=== PATIENT | male | born 1980 | race African-American/Black ===

== ENCOUNTER 2020-09-22 23:42 | Observation (INO) ==
[2020-09-23] MEDS ORDERED: HYDROmorphone 2 MG/1 ML VIAL IV ONE (00:41)
[2020-09-23] MEDS ORDERED: ONDANSETRON 4 MG/2 ML VIAL IV STA (00:41)
[2020-09-23] MEDS ORDERED: SODIUM CHLORIDE 0.9% 500 ML IV STA (00:42)
[2020-09-23] MEDS ORDERED: ceFAZolin 1,000 MG VIAL IV ONE (01:19)
[2020-09-23] MEDS ORDERED: DIPH/TET/ACEL PERT BOOSTER VACCINE 0.5 ML VIAL IM ONE (01:19)
[2020-09-23] MEDS ORDERED: HYDROmorphone 2 MG/1 ML VIAL IV STA (01:45)
[2020-09-23 01:49] LABS: Basophils % 0.3 % (0.0-0.8); Eosinophils # 0.1 10*3/uL (0.0-0.87); Eosinophils % 0.5 % (0.00-10.9); Hematocrit 38.5 VOL% (42.0-52.0); Hemoglobin 13.1 GM/DL (14.0-18.0); Immature Granulocytes % 0.3 %; Immature Granulocytes Absolute 0.04 #; Lymphocytes # 2.5 10*3/uL (1.4-4.0); Lymphocytes % 18.1 % (21.2-54.2); Mean Corpuscular Volume 95.5 FL (87-102); Mean Platelet Volume 9.3 FL (9.6-12.0); Monocytes % 8.7 % (1.7-12.7); Neutrophils % 72.1 % (38.7-73.9); Platelet Count 192 T/CUMM (130-400); Red Blood Count 4.03 MC/CUMM (3.8-5.5); Red Cell Distribution Width 11.4 % (9.3-17.3)
[2020-09-23 01:59] LABS: PT Patient Result 11.1 SECS (9.8-11.9)
[2020-09-23 02:10] LABS: Albumin 3.6 G/DL (3.4-5.0); Bilirubin,Total 0.5 MG/DL (0.2-1.0); Calcium 8.5 MG/DL (8.5-10.1); Total Protein 6.9 G/DL (6.4-8.3)
[2020-09-23] MEDS ORDERED: MAGNESIUM HYDROXIDE SUSP 30 ML UDCUP PO PRN (03:17)
[2020-09-23] MEDS ORDERED: SODIUM CHLORIDE 0.9% 1,000 ML IV SCH (03:17)
[2020-09-23] MEDS ORDERED: ONDANSETRON 4 MG/2 ML VIAL IV PRN (03:17)
[2020-09-23] MEDS ORDERED: HYDROmorphone 2 MG/1 ML VIAL IV PRN (03:17)
[2020-09-23] MEDS ORDERED: ceFAZolin 2,000 MG in PREMIX 1 EACH IV ONE ×3 (03:30→06:30)
[2020-09-23] MEDS ORDERED: INFLUENZA VIRUS VACCINE 0.5 ML SYRINGE IM ONE (04:40)
[2020-09-23 05:36] LABS: Albumin 3.6 G/DL (3.4-5.0); Bilirubin,Total 0.4 MG/DL (0.2-1.0); Calcium 8.5 MG/DL (8.5-10.1); Osmolality,Calculated 273.8 MOS/KG (273-304); Total Protein 6.9 G/DL (6.4-8.3)
[2020-09-23] MEDS ORDERED: ACETAMINOPHEN 500 MG TABLET PO ONE (07:54)
[2020-09-23] MEDS ORDERED: FAMOTIDINE 20 MG TABLET PO ONE (07:54)
[2020-09-23] MEDS ORDERED: GABAPENTIN 400 MG CAPSULE PO ONE (07:54)
[2020-09-23] MEDS ORDERED: DIAZEPAM 5 MG TABLET PO ONE (07:54)
[2020-09-23] MEDS ORDERED: ROPIVACAINE 0.5% 30 ML VIAL ONE (09:02)
[2020-09-23] MEDS ORDERED: LIDOCAINE 2% 5 ML VIAL ONE ×2 (09:02→11:07)
[2020-09-23] MEDS ORDERED: DEXAMETHASONE 4 MG/1 ML VIAL ONE (09:02)
[2020-09-23] MEDS ORDERED: BACITRACIN OINT 0.9 GM PACK TOP ONE (09:19)
[2020-09-23] MEDS ORDERED: fentaNYL 100 MCG/2 ML VIAL ONE (11:07)
[2020-09-23] MEDS ORDERED: SEVOFLURANE 1 UNIT/15 MINUTE INH ONE (11:07)
[2020-09-23] MEDS ORDERED: propofoL 200 MG/20 ML VIAL IV ONE (11:07)
[2020-09-23] MEDS ORDERED: MIDAZOLAM 2 MG/2 ML VIAL ONE (11:07)
[2020-09-23] MEDS ORDERED: ONDANSETRON 4 MG/2 ML VIAL ONE (11:08)
[2020-09-23] MEDS ORDERED: ROCURONIUM 100 MG/10 ML VIAL IV ONE (11:08)
[2020-09-23] MEDS ORDERED: SUCCINYLCHOLINE 200 MG/10 ML VIAL ONE (11:08)
[2020-09-23] MEDS ORDERED: ACETAMINOPHEN 1,000 MG/100 ML VIAL IV ONE (11:08)
[2020-09-23] MEDS ORDERED: LACTATED RINGERS 1,000 ML IV ONE (11:08)
[2020-09-23 17:07] VITALS: BP 120/59
== END 2020-09-23 18:35 | disposition home or self-care (01) ==
LOC: N.EDINP 23:42 → N.ED 23:42 → N.EDINP 09-23 03:10 → N.3E 09-23 03:27
PROVIDERS: ADMIT Orthopaedic Surgery; ATTEND Orthopaedic Surgery